=== PATIENT | female | born 1990 | race Caucasian/White ===

== ENCOUNTER → 2020-04-19 | Outpatient (CLI) | payer BC, OTHER ==
[~2020-04-19] MED LIST: ACETAMINOPHEN-1 EAC1 PO; ALLERGY MEDICATION; NAPROSYN500 MG PO; SINGULAIR 10 MG10 MG PO; ZOFRAN ODT4 MG PO
== END ==
LOC: LAB 13:06
PROVIDERS: ATTEND Anesthesiology
DX: Z01.812 Encounter for preprocedural laboratory examination (principal); Z20.822 Contact with and (suspected) exposure to COVID-19